=== PATIENT | female | born 1940 | race Caucasian/White ===

== ENCOUNTER 2019-12-31 17:05 | Inpatient (IN) | payer OTHER ==
[~2019-12-31] VITALS: Ht 160 cm; Wt 76.7 kg
[~2019-12-31 17:05] MED LIST: ALEVE220 MG PO; ASPIR 8181 MG PO; CLONIDINE0.1 PO; COREG6.25 MG PO; FIBER THERAPY454 GM PO; FLUVASTATIN SOD40 MG PO; LOSARTAN-HCTZ1 EAC1 PO; MIRALAX17 GM PO; MOBIC7.5 MG PO; MULTIVITAMINS1 EAC7 PO; NEXIUM40 MG PO; OSTEO BI-FLEX1 EAC1 PO; TUMS PO
[2019-12-31 17:07] VITALS: BP 178/102
--- NOTE | 2019-12-31 17:40 | NUR ---
This RN suctions patient's trach shortly after arrival in ER. Brown sputum noted.
[2019-12-31 17:48] LABS: BASOPHILS 0.8 % (0.0-2.0); EOSINOPHILS 0.1 % (0.0-3.0); LYMPHOCYTES 8.9 % (24.0-44.0); MCH 19.9 pg (26.0-34.0); MCHC 30.4 g/dL (28.0-37.0); MCV 65.5 fL (80.0-100.0); MONOCYTES 6.9 % (1.0-8.0); PLATELET COUNT 424 thou/uL (150-400); POLYS 83.3 % (36.0-66.0); RBC 5.03 mil/uL (4.20-5.00); RDW 21.4 % (10.5-14.5); WBC 9.6 thou/uL (4.0-11.0)
[2019-12-31 17:56] LABS: CALCIUM 8.6 mg/dL (8.5-10.1); CREATININE 1.2 mg/dL (0.6-1.0); POTASSIUM 3.4 mmol/L (3.5-5.1)
[2019-12-31 18:07] LABS: ALBUMIN 2.7 g/dL (3.4-5.0); TOTAL BILIRUBIN 0.2 mg/dL (<0.1-1.0); TOTAL PROTEIN 7.2 g/dL (6.4-8.2)
[2019-12-31 18:11] LABS: TROPONIN-I 1.53 ng/mL (<0.06)
[2019-12-31 18:32] LABS: ANISOCYTOSIS 1+; HYPOCHROMASIA 2+; MICROCYTES 1+
[2019-12-31] MEDS ORDERED: VITAMIN D350 MC3 PO (20:21)
[2019-12-31] MEDS ORDERED: HYDROCHLOROTH12.5 M2 PO (20:21)
[2019-12-31] MEDS ORDERED: SERTRALINE HCL25 M1 PO (20:25)
[2019-12-31] MEDS ORDERED: LISINOPRIL20 MG PO (20:26)
[2019-12-31] MEDS ORDERED: CLONIDINE HCL0.1 MG PO (20:26)
[2019-12-31] MEDS ORDERED: FERROUS SU220 MG/52 PO (20:27)
[2019-12-31] MEDS ORDERED: TRAZODONE HCL50 MG PO (20:27)
[2019-12-31] MEDS ORDERED: TAMSULOSIN HCL0.4 MG PO (20:27)
[2019-12-31] MEDS ORDERED: SILTUSSIN100 MG/5 M PO (20:28)
[2019-12-31] MEDS ORDERED: LANSOPRAZOLE30 MG PO (21:06)
[2019-12-31 22:06] VITALS: BP 164/95
[2019-12-31 22:08] VITALS: BP 157/99
[2019-12-31 22:30] VITALS: BP 174/91
[2019-12-31 23:00] VITALS: BP 165/88
[2019-12-31 23:30] VITALS: BP 177/96
[2020-01-01] VITALS (36 sets, daily range): BP systolic 128–184; BP diastolic 68–132
--- NOTE | 2020-01-01 01:12 | NUR ---
ADMIT NOTE: Per report, pt was admitted from home, family providing cares s/p anoxic brain aneurysm with trach placement. She does not use oxygen at home, but does have humidification provided. Family noted increased coughing and expectoration of thick brown/blood-tinged sputum. Upon arrival to ICU, pt was awake, unable to respond to questions, she does not emote discomfort, but is a bit resistive to cares, ie, adjusting BP cuff, placing tubing for vent, etc. Culture was collected, her lungs are coarse and diminished to bases, sats are in the upper 90's. The vent was initiated, to a cuffless trach, causing a leak alarm to ring on the vent, frequently. Review of her labs show elevated BNP of 25,100 and Troponin at 1.53 and 1.62. Per family, she is able to take meds crushed and placed in applesauce, but is NPO at this time. Miller catheter is present at admission, draining cloudy, foul-smelling urine. Old G-tube site has a bandaid present, no signs of infection are present. The bed is in the low/locked position, the siderails are up x 4 and the bed alarm is set. Will continue to monitor and follow POC.
[2020-01-01 07:50] LABS: HEMATOCRIT 33.4 % (37.0-47.0); HEMOGLOBIN 10.1 gm/dL (12.0-15.0); MCHC 30.1 g/dL (28.0-37.0); MCV 66.4 fL (80.0-100.0); RBC 5.04 mil/uL (4.20-5.00); RDW 21.7 % (10.5-14.5); WBC 8.1 thou/uL (4.0-11.0)
[2020-01-01 07:55] LABS: CALCIUM 8.5 mg/dL (8.5-10.1); CREATININE 0.9 mg/dL (0.6-1.0); MAGNESIUM 1.9 mg/dL (1.8-2.4); POTASSIUM 3.1 mmol/L (3.5-5.1)
--- NOTE | 2020-01-01 08:16 | EKG ---
[facility] [place] [address] ELECTROCARDIOGRAM REPORT Name: ZA RIVERO Room #: 238-P ADM IN M.R.#: [id number] Admission: 12/31/19 Attend Phys: Doyle Roe MD Discharge: Date of : 38 Report #: [id number] THIS REPORT FOR: cc: Venita Sierra MD, Martha M. MD Lundgren,Georges Gray MD [facility] ~ THIS REPORT FOR: //name// [facility] ED Test Date: 2019-12-31 Test Time: 17:20:45 Pat Name: ZA RIVERO Department: Room: 238 Gender: F Artificial Leather Calender Operator: carlyn : 1940 Requested By: Razia Lozano Order Number: [id number] MD: Georges Sibley Measurements Intervals [place] Rate: 90 P: 33 IN: 151 QRS: -29 QRSD: 88 T: 141 QT: 395 QTc: 484 Interpretive Statements Sinus rhythm Atrial premature complexes in couplets Left ventricular hypertrophy Nonspecific T abnrm, anterolateral leads Compared to ECG 12/03/2014 10:01:00 Atrial premature complex(es) now present ST and T wave abnormality is more prominent Electronically Signed On 01-01-2020 8:15:05 CDT by Georges Sibley [email or web address] <ELECTRONICALLY SIGNED> By: Georges Sibley MD, [facility] 01/01/20 0815 19 19 Georges Sibley MD, [facility] /EPI
--- NOTE | 2020-01-01 08:22 | EKG ---
[facility] [place] [address] ELECTROCARDIOGRAM REPORT Name: ZA RIVERO Room #: 238-P ADM IN M.R.#: [id number] Admission: 12/31/19 Attend Phys: Doyle Roe MD Discharge: Date of : 39 Report #: [id number] THIS REPORT FOR: cc: Venita Sierra MD, Martha M. MD Lundgren,Georges Gray MD [facility] ~ THIS REPORT FOR: //name// [facility] Test Date: 2020-01-01 Test Time: 08:04:24 Pat Name: ZA RIVERO Department: Room: 238 Gender: F Catering Assistant: KEREN : 1940 Requested By: Eli Sevilla Order Number: [id number] MD: Georges Sibley Measurements Intervals [place] Rate: 71 P: 20 WA: 161 QRS: -24 QRSD: 89 T: 164 QT: 459 QTc: 499 Interpretive Statements Sinus rhythm Probable left atrial enlargement LVH with secondary repolarization abnormality Borderline prolonged QT interval Compared to ECG 12/03/2014 10:01:00 Atrial premature complexes are no longer present Electronically Signed On 01-01-2020 8:20:51 CDT by Georges Sibley [email or web address] <ELECTRONICALLY SIGNED> By: Georges Sibley MD, [facility] 01/01/20819 3 3 Georges Sibley MD, [facility] /EPI
--- NOTE | 2020-01-01 08:57 | NUR ---
chart review. cm unable to visit with dhaval, pending covid 19. cm spoke with pt spouse jovan who stated ok to speak with daughter edna. intro to cm, support and dcp. " 1st after hospital in september, then [facility] when got trach and peg then [facility]. she total care at home. has trach, peg was removed on 12/18/2019. have 2 steps into house, has wheel chair, hospital bed, suction machine, and ramirez lift. she eats by mouth and takes medication crushed in applesauce. i forgot to let the nurse know last night that she take cholesterol daily powder in oj 1 x a day. called cholestyramine powder. she has new dr for [facility] roca but only been able to do video meeting since cant come to the home yet. thank you for checking on us and calling"/daughter edna. cm spoke with bedside nurse and passed on information about cholestyramine medication. will cont following as needed for dc needs.
--- NOTE | 2020-01-01 10:28 | NUR ---
perrla, brisk, spontaneous movement of italo upper extremities, not following commands, unresponsive, blood sugar-86.
[2020-01-01 14:53] LABS: BE(vivo) 2.7 mmol/L (-2 to +3); HCO3 27.2 mmol/L (22.0-26.0); PCO2 41.5 mmHg (35.0-45.0); PO2 170.3 mmHg (80.0-100.0); pH 7.434 (7.360-7.450); sO2 99.2 % (92.0-98.0)
--- NOTE | 2020-01-01 17:00 | NUR ---
PT AWAKE, MOVING ALL EXTREMITIES SPONTANEOUSLY, NODDED NO TO COMMAND. TOLERATING VENT WITH CPAP SETTINGS, NPO, PALMA WITH MARGINAL URINE OUTPUT.
[2020-01-01 21:24] LABS: URINE BILIRUBIN NEGATIVE (Negative); URINE BLOOD TRACE (Negative); URINE CLARITY SL CLOUDY; URINE COLOR YELLOW; URINE GLUCOSE-RANDOM* NEGATIVE (Negative); URINE KETONES NEGATIVE (Negative); URINE LEUKOCYTES-REFLEX TRACE (Negative); URINE NITRITE-REFLEX NEGATIVE (Negative); URINE PROTEIN (DIPSTICK) 2+ (Negative); URINE SPECIFIC GRAVITY 1.025 (1.005-1.035); URINE UROBILINOGEN 0.2 E.U./dl (0.2-1.0)
[2020-01-01 21:39] LABS: BACTERIA-REFLEX 1-9 Few /HPF (None Seen); CASTS None Seen /LPF (None Seen); CRYSTALS None Seen /LPF (None Seen); SQUAMOUS 0-3 Few /LPF (0-3); URINE RBC 3-10 Few /HPF (0-2); URINE WBC-REFLEX 0-5 Rare /HPF (0-5)
[2020-01-02] VITALS (28 sets, daily range): BP systolic 133–171; BP diastolic 57–95
--- NOTE | 2020-01-02 06:11 | NUR ---
PT RESTED WHOLE NIGHT. NO CONCERNS OVERNIGHT. ST, TO SR ON THE MONITOR. 100% O2 SATS MOST OF THE TIME. ELEVATED BP, HYDRALAZINE X 1 PRN GIVEN. ORAL CARE , AND Q2 TURNS COMPLETED. PT IS NONE VERBLA, BUT RESPONDS ONES IN A WHILE, FOLLOWING DIRECTIONS. 1/2 NS 20KMEQ MAINTAINED AT 80ML/HR. ORDERS DROP DR. TALAVERA RECEIVED BY CHARGE NURSE FOR POSSIBLE TRANSFER OUT OF ICU. NO OTHER CONCERNS AT THIS TIME. WILL CONTINUE WITH POC.
[2020-01-02 07:31] LABS: HEMATOCRIT 35.2 % (37.0-47.0); HEMOGLOBIN 10.3 gm/dL (12.0-15.0); MCH 19.8 pg (26.0-34.0); MCHC 29.2 g/dL (28.0-37.0); MCV 67.8 fL (80.0-100.0); RBC 5.2 mil/uL (4.20-5.00); RDW 21.6 % (10.5-14.5); WBC 7.4 thou/uL (4.0-11.0)
[2020-01-02 07:46] LABS: ALBUMIN 2.9 g/dL (3.4-5.0); CALCIUM 8.7 mg/dL (8.5-10.1); CREATININE 0.9 mg/dL (0.6-1.0); MAGNESIUM 1.8 mg/dL (1.8-2.4); POTASSIUM 3.1 mmol/L (3.5-5.1); TOTAL BILIRUBIN 0.2 mg/dL (<0.1-1.0); TOTAL PROTEIN 7.8 g/dL (6.4-8.2)
[2020-01-02 07:48] LABS: TROPONIN-I 1.97 ng/mL (<0.06)
--- NOTE | 2020-01-02 13:57 | NUR ---
ASSUMED CARE OF PT AT 0700. PT NON VERBAL, NOT ABLE TO FOLLOW COMMANDS AT THIS TIME. IN NO APPARENT DISTRESS. RESTLESS AT TIMES. PLACED ON TRACH SHIELD BY RT - TOLERATING WELL - BROWN/BLOOD TINGED SECRETIONS. GUARDED TO ORAL CARE. EDEMA NOTED ABOVE PERIPHERAL IV SITE - IV TEAM NOTIFIED THAT CONFIRMED IV STILL GOOD WITH ULTRASOUND. POTASSIUM REPLACED PER PROTOCOL. HYPERTENSIVE BUT IMPROVES WITH HYDRALAZINE. ORDERS FOR CCT TRANSFER. REPORT GIVEN TO CCU NURSE.
--- NOTE | 2020-01-02 14:18 | NUR ---
1315: PT. ARRIVED FROM ICU, REPORT RECEIVED AT BEDSIDE FROM RAMÓN LOVING. PT. IS FIGIDITY AND RESTLESS, PULLS ON CORDS. IV INFUSING WITH FIRST REPLACEMET POTASSIUM INFUSING NOW TO RIGHT ANTECUBAtal IV SITE NO SIGNS OF COMPLICATIONS. PT. SHOWS NO SIGNS OF GRIMACING OR MAJOR DISCOMFORT. WILL CONTINUE TO MONITOR. CURRENTLY NSR, NO ECTOPY.
--- NOTE | 2020-01-02 14:21 | NUR ---
TRACH COLLAR IS ON TRACH AT THIS TIME AT 14 LITERS AND 35%FIO2, NO SECRETIONS AND TRACH TIES ON AND IN PLACE. CUFF PRESSURE CHECKED AND BALLON IS NORMAL INFLATION SIZE.
--- NOTE | 2020-01-02 14:40 | 2DMMODE ---
[facility] [place] [address] 2 D/M-MODE ECHOCARDIOGRAM Name: ZA RIVERO Room #: 211-P ADM IN M.R.#: [id number] Admission: 12/31/19 Attend Phys: Doyle Reo MD Discharge: Date of : 38 Report #: [id number] THIS REPORT FOR: cc: Venita Sierra MD, Martha M. MD Park, Jin S. MD ~ APPROVED REPORT Study performed: 01/02/2020 13:48:17 EXAM: Comprehensive 2D, Doppler, and color-flow Echocardiogram Patient Location: Bedside Room #: 211 Status: routine BSA: 1.72 HR: 88 bpm BP: 171/86 mmHg Rhythm: NSR Other Information Study Quality: Good Technically limited study due to no patient participation, constant movement, inability to position. Indications Short of air, cough, elevated troponin, hypertension. Hx: Mild CAD, HTN, HLP, paraplegic, permanent trach. 2D Dimensions RVDd: 41.06 mm IVSd: 14.41 (7-11mm) LVOT Diam: 19.51 (18-24mm) LVDd: 44.58 mm PWd: 13.13 (7-11mm) Ascending Ao: 38.40 (22-36mm) LVDs: 33.08 (25-40mm) Aortic Root: 32.62 mm Volumes Left Atrial Volume (Systole) Single Plane 4CH: 53.17 mL Single Plane 2CH: 89.97 mL LA ESV Index: 46.00 mL/m2 Aortic Valve AoV Peak Luis.: 1.91 m/s AO Peak Gr.: 14.62 mmHg LVOT Max P.86 mmHg [facility] [address] [place] [address] 2 D/M-MODE ECHOCARDIOGRAM Name: ZA RIVERO Room #: 211-P [facility] IN [facility].#: [id number] Admission: 12/31/19 Attend Phys: Doyle Roe MD Discharge: Date of : 38 Report #: [id number] LVOT Max V: 1.31 m/s REJI Vmax: 2.05 cm2 AI Vmax: 4.38 m/s AI Forrest: 3.71 m/s2 AI PHT: 342.69 ms Mitral Valve E/A Ratio: 1.4 MV Decel. Time: 157.87 ms MV E Max Luis.: 1.49 m/s MV A Luis.: 1.05 m/s MV PHT: 45.78 ms IVRT: 99.19 ms Pulmonary Valve PV Peak Luis.: 0.98 m/s PV Peak Gr.: 3.86 mmHg Pulmonary Vein P Vein S: 0.57 m/s P Vein A: 0.30 m/s P Vein D: 0.47 m/s P Vein A Dur.: 83.0 msec P Vein S/D Ratio: 1.21 Tricuspid Valve TR Peak Luis.: 3.38 m/s RAP Estimate: 10.00 mmHg TR Peak Gr.: 46.00 mmHg PA Pressure: 56.00 mmHg Left Ventricle The left ventricle is normal size. Regional wall motion abnormalities are noted. Mild concentric left ventricular hypertrophy. The overall left ventricular systolic function appears low-normal. LVEF is 50%. Moderate diastolic dysfunction is present (pseudonormal filling). Right Ventricle The right ventricle is normal size. The right ventricular systolic function is normal. Atria Left atrium is moderately dilated. Right atrium is mildly dilated. Aortic Valve The aortic valve is normal in structure. Mild to moderate aortic regurgitation. There is no aortic valvular stenosis. [facility] [address] [place] [address] 2 D/M-MODE ECHOCARDIOGRAM Name: ZA RIVERO Room #: 211-P [facility] IN .R.#: [id number] Admission: 12/31/19 Attend Phys: Dyole Roe MD Discharge: Date of : 39 Report #: [id number] Mitral Valve The mitral valve is normal in structure. Mild mitral annular calcification. Mild mitral regurgitation. No evidence of mitral valve stenosis. Tricuspid Valve The tricuspid valve is normal in structure. Mild to moderate tricuspid regurgitation. Estimated PAP is 55-60mmHg. Pulmonic Valve The pulmonary valve is normal in structure. Mild pulmonic regurgitation. Great Vessels The aortic root is normal in size. The ascending aorta is borderline dilated. IVC is dilated and collapses <50% with inspiration. Pericardium There is no pericardial effusion. <Conclusion> The left ventricle is normal size. Mild concentric left ventricular hypertrophy. The overall left ventricular systolic function appears low-normal. LVEF is 50%. Moderate diastolic dysfunction is present (pseudonormal filling). The right ventricle is normal size. Left atrium is moderately dilated. Mild to moderate aortic regurgitation. Mild mitral regurgitation. Mild to moderate tricuspid regurgitation. Estimated PAP is 55-60mmHg. <ELECTRONICALLY SIGNED> By: Del Frankel MD 01/02/20 1438 1438 1438 Del Frankel MD /INF
--- NOTE | 2020-01-02 18:52 | NUR ---
CASE MANAGEMENT: PLEASE CONTACT HER HOME HEALTH PILOT INSTRUCTOR IN REGARDS TO DISCHARGE AT : [phone] SHIRA SHE HAS SOME CONCERNS FOR HALFWAY CARE AND BLOOD PRESSURE REGULATION. THANK YOU
[2020-01-02 19:42] LABS: CALCIUM 8.7 mg/dL (8.5-10.1); CREATININE 0.8 mg/dL (0.6-1.0)
[2020-01-02 19:43] LABS: POTASSIUM 4.7 mmol/L (3.5-5.1)
[2020-01-03] VITALS (7 sets, daily range): BP systolic 149–182; BP diastolic 81–100
--- NOTE | 2020-01-03 06:01 | NUR ---
PATIENTS CARES WERE ASSUMED AT SHIFT CHANGE. PATIENT WAS ASSESSED AND MEDS WERE PASSED. PATIENT IS A PARAPLEGIC, NON VERBEL, AND FIX AND FOLLOW PATIENT. POC IS TO MONITOR BP CLOSE. PATIENT IS INCONTINENT. PATIENT HAS A PALMA. THIS PATIENT HAD A LARGE BM THIS SHIFT. THIS WAS FOLLOWED BY A BATH AND A LINEN CHANGE. HOURLY ROUNDING WAS DONE. THE BED IS IN A LOW AND LOCKED POSITION.
[2020-01-03 06:52] LABS: HEMATOCRIT 31.5 % (37.0-47.0); HEMOGLOBIN 9.5 gm/dL (12.0-15.0); MCHC 30.3 g/dL (28.0-37.0); MCV 66.2 fL (80.0-100.0); RBC 4.75 mil/uL (4.20-5.00); RDW 21.2 % (10.5-14.5); WBC 8.4 thou/uL (4.0-11.0)
[2020-01-03 07:02] LABS: CALCIUM 8.8 mg/dL (8.5-10.1); CREATININE 0.8 mg/dL (0.6-1.0); MAGNESIUM 1.9 mg/dL (1.8-2.4)
[2020-01-03 07:06] LABS: POTASSIUM 3.7 mmol/L (3.5-5.1)
--- NOTE | 2020-01-03 14:26 | NUR ---
Chart reviewed and discussed with the care team and the attending. Pt was on service with [facility] prior to admission and software writer spoke with her HH RN Karla. She notes pt's blood pressures have been running very high at home and dtr reports she was put on a new medication prior to dc from rehab. [facility] notes lots of education regarding trach care, meds, and wound care needed in the home. The attending has spoken with pt's dtr Rhoda today regarding her prior level of function, current concerns and plan of care. Lead Care Manager also spoke with Rhoda to confirm support, HH services and dme as well discuss possible need for SNF or hospice referral pending her progress. The pt is off the vent and out of ICU. She is requiring humidification and suction which she has at home. She has been more somulent and ST is trying to reeval her swallow. Her peg tube was removed a few weeks ago when she [facility] She has been on a modified diet with regular liquids at home with her dtr giving her crushed meds in applesauce. The pt's dtr reports that the pt was at [facility] for approx one month starting September 21, one month at [facility], and one month at [facility]. She has not used any of her SNF benefits. Pt's dtr is uncertain if she or pt's spouse are interested in SNF. They prefer the pt return home with them and HH at [place]. The pt's son has been helping in the evenings. She denies pt having an Adv Directive or living will. She indicates that they have not had any end of life decussions as a family but will touch base with family this evening should the pt's condition continue to decline. She moved in with parents to help care for the pt. She is aware that the pt may need to have a peg tube again pending her swallow eval. Neuro consult pending. Cardiology adjusting bp meds. Support provided along with introduction of cm role. DC plan at this time is to return home with [facility]. Pt will need [facility] non emergent transport at [place]. Will follow.
--- NOTE | 2020-01-03 14:55 | NUR ---
PT ON SERVICE WITH [facility] PRIOR TO ADM FAXED CLINICAL UPDATE AND SPOKE WITH KIN IN INTAKE SHE RECEIVED UPDATE AND LET HER KNOW OF POSS DC TOMORROW. DP TO FOLLOW.
--- NOTE | 2020-01-03 20:25 | NUR ---
ASSUMED CARE OF PATIENT AT 0700. ASSESSMENTS COMPLETED. PATIENT ALERT TO SELF AND APHASIC. PATIENT SUCTIONED INTERNALLY ONCE WITH A THICK/DAVIS SPUTUM. IV PLACED BY IV TEAM IN RIGHT UE, WITH FLUIDS RUNNING. BLOOD PRESSURE AT 1100 OF 182/89, HYDRALAZINE GIVEN WITH DECREASED BP RESULT. NEURO AND GI CONSULT PLACED. GI DOCTOR REQUESTED A CALORIE COUNT BE INITIATED. ST DID EVAL AND DETERMINED THAT A NECTAR THICK LIQUIDS WOULD BE MOST APPROPRIATE. ST WILL RETURN TOMORROW WITH SPEAK VALVE TO MOST SAFELY ALLOW PATIENT TO EAT AND DRINK AND WILL INITIATE DIET ORDER TOMORROW. PATIENT TO CONTINUE WITH POC.
[2020-01-04] VITALS (10 sets, daily range): BP systolic 98–9166; BP diastolic 56–92
[2020-01-04 08:34] LABS: CALCIUM 8.6 mg/dL (8.5-10.1); CREATININE 0.7 mg/dL (0.6-1.0); MAGNESIUM 1.5 mg/dL (1.8-2.4); POTASSIUM 3.4 mmol/L (3.5-5.1)
--- NOTE | 2020-01-04 08:50 | NUR ---
pt alert to self, tracking, trach with humidified air and frquent suctioning of thick allen sputum, oral care given carefully as patient bites everything that goes in mouth, turning q 2 hrs and prn, lrg liquid bm this am sent to lab for ob, no signs of pain, vss except elevated bp prn hydralizine given, jack with yellow urine drainage, old peg site with mepilex intact, npo waiting for st to bring a speaking valve for pt and eval for diet, lab unable to draw and stated next person would be here after 0600, report given to next shift to con't ppoc.
--- NOTE | 2020-01-04 09:36 | NUR ---
REC CARE OF PT AT SHIFT CHANGE. TRACH SHIELD OVER TO FAR RIGHT OF TRACH OPENING. REPORTS OF NPO STILL. SPEECH SAID TOO MANY SECRETIONS FOR TRACH/VOICE COVER BUT WHEN SHE DOES INGEST SHE SHOULD BE ON THICKENED LIQ SHE ASPIRATED W/THIN LIQUIDS. PT OPENS EYES AND WATCHES, HAS NODDED NO TWICE TO QUESTIONS. ALL CARES EXPLAINED WHILE DOING. LAB COULDNT GET BLOOD THIS AM. I CAME IN AND HELD PT'S HAND AND LABS WERE SUCCESSFULLY DRAWN, TURN Q2. AIR PUMP WILL BE DELIVERED PT HAS SUPERFICIAL WOUNDS TO BE TREATED WITH CREAM PER INDER MEJIAS. SEE SEPARATE INTERVENTIONS FOR ASSESSMENTS. RT CLEANED TRACH AND CHANGED OUT INTERNAL PIECE. PT TOLERATED WELL. WILL CONTINUE TO MONITOR
--- NOTE | 2020-01-04 10:00 | NUR ---
WOUND CONSULT; WOUND WERE IDENTIFIED PRIMARILY TO THE PERIRECTAL AREAS. NO S/S OF INFECTION. INCONTINET DERMATITIS VS PRESSURE. RECOMMENDATIONS; ZGUARD DAILY/PRN AND A LOW AIRLOSS PUMP RN PRESENT
--- NOTE | 2020-01-04 15:46 | NUR ---
[facility] has called back and decided to decline the case for readmission. Pt is getting Peg tube re inserted today. Retail Team Leader had f/u conversation with pt's dtr via phone. No weekend dc anticipated. Possible dc home with hh early next week. Dtr familiar with tube feedings but will need additional instruction. SNF benefit discussed and possible referral to [facility]. Dtr and pt's spouse to discuss but they are leaning toward bringing her back home with hh. They are not sure about SNF or ltc placement. They feel they want to try to care for her at home. Referral for HH faxed and called to [facility]. They can accept as a new HH provider. Dtr updated. Dc raw material planner has faxed referral to [facility] for new enteral referral and the pt will need formula and supplies at home. Will await the shoe patternmaker recommendations and see how the pt tolerates her feedings. CM to f/u with the pt's dtr on Tuesday to reveiw the dc plan.
--- NOTE | 2020-01-04 15:48 | NUR ---
ELECTROLYTE REPLACEMENT STARTED PRIOR TO PT LEAVING FOR SURGERY; WILL CONTINUE WITH IVF AND ENTER A LAB ORDER FOR MAG WHEN APPROPRIATE. AWAITING REPORT/PT WHEN READY
--- NOTE | 2020-01-04 17:32 | NUR ---
REC PT BACK FROM RECOVERY, RESPIRATIONS WNL, SEE VS. COVERED NEW IV WELL ABD AND GAVE HER PAIN MEDICINE FOR PAIN AEB HER MAKING GRIMACES AND ARCHING SLIGHTLY. WILL CONTINUE TO MONITOR
[2020-01-05 04:51] VITALS: BP 138/86
[2020-01-05 07:00] VITALS: BP 137/77
--- NOTE | 2020-01-05 07:02 | NUR ---
ASSUME CARE 1900. UNABLE TO VOICE OAIN BUT NO MOANING AT REST OR WITH MOVEMENT NOTED. POOR ACTIVITY TOLERANCE. PT MOVES ARMS BUT DOES NOT MOVE LOWER EXTREMITIES. A/O TO PERSON ONLY. UNABLE TO ASSESS ORIENTATION. ASSESSMENT CHARTED. PROGRESSING MODERATELY WITH POC. PLAN IS TO CONTINUE WITH ABX/STABILIZE ELECTROLYTES AND MONITRO LEVEL OF CONCIOUSNESS.SR ON MONITOR. NO DISTRESS NOTED. SUCTIONING NEEDED AND MODERATE TOLERANCE. SATS ADEQUATELY ON 8L. WILL CONTINUE TO MONITOR AND FOLLOW WITH POC
[2020-01-05 10:57] LABS: HEMATOCRIT 34.2 % (37.0-47.0); HEMOGLOBIN 10.5 gm/dL (12.0-15.0)
[2020-01-05 11:11] LABS: % SATURATION 8 % (20-39); IRON 19 ug/dL (50-170); TIBC 242 ug/dL (250-450)
[2020-01-05 11:39] LABS: FOLIC ACID 17.5 ng/mL (8.6-58.9)
[2020-01-05 17:20] VITALS: BP 132/76
[2020-01-05 19:15] VITALS: BP 145/85
--- NOTE | 2020-01-06 03:19 | NUR ---
ASSUMED CARE OF PT AT 1900HRS. PT IS ALERT BUT IS NON VERBAL. ORIENTATION CANNOT BE ASSESSED AND NEEDS MUST BE ANTICIPATED. FALL PRECAUTION IN PLACE. TRACH MASK IN PLACE AND TRACH WAS SUCTIONED NEEDED. PT WAS TURNED Q2H. PT TRIES TO PUT THINGS IN MOUTH. FREQUENT CHECKS NEEDED. ORAL CARE PROVIDED. PT APPEARS COMFORTABLE AND WAS ABLE TO SLEEP PART OF THE SHIFT. PEG TUBE SITE APPEARS C/D/I. CONTINUOUS PULSE OX IN PLACE. VSS AND NO S/S OF ACUTE DISTRESS. WILL CONTINUE TO MONITOR.
[2020-01-06 04:07] LABS: ABSOLUTE NEUTROPHILS 3.4 thou/uL (1.4-8.2); BASOPHILS 1.1 % (0.0-2.0); EOSINOPHILS 8.5 % (0.0-3.0); HEMATOCRIT 30.4 % (37.0-47.0); HEMOGLOBIN 9.3 gm/dL (12.0-15.0); LYMPHOCYTES 21.2 % (24.0-44.0); MCH 19.8 pg (26.0-34.0); MCHC 30.5 g/dL (28.0-37.0); MCV 64.8 fL (80.0-100.0); MONOCYTES 7.6 % (1.0-8.0); POLYS 61.6 % (36.0-66.0); RBC 4.69 mil/uL (4.20-5.00); RDW 20.9 % (10.5-14.5); WBC 5.5 thou/uL (4.0-11.0)
[2020-01-06 04:10] VITALS: BP 145/94
[2020-01-06 04:10] LABS: PLATELET COUNT 291 thou/uL (150-400)
[2020-01-06 04:14] LABS: CREATININE 0.7 mg/dL (0.6-1.0); MAGNESIUM 1.8 mg/dL (1.8-2.4); POTASSIUM 3.4 mmol/L (3.5-5.1)
[2020-01-06 07:15] VITALS: BP 152/88
[2020-01-06 11:30] VITALS: BP 146/87
[2020-01-06 16:00] VITALS: BP 158/101
[2020-01-06 18:04] VITALS: BP 148/79
--- NOTE | 2020-01-06 18:25 | NUR ---
PT A&O TO SELF, NON VERBAL, NO APPARENT PAIN. PATIENT HAS TRACH, SUCTIONED NEEDED, SPUTUM THICK AND CLEAR, HOB RAISED. PATIENT HAS CONT. PULSE OX, TRACH TENT AT 14L O2 AT 35%. IV LEFT FA PATENT WITH FLUIDS RUNNING. LBM TODAY. MEDS GIVEN THROUGH PEG AND FLUSHED. NO SIGNS OF DISTRESS. WILL CONTINUE TO MONITOR.
[2020-01-06 19:19] VITALS: BP 115/62
[2020-01-07 04:39] VITALS: BP 153/91
--- NOTE | 2020-01-07 07:34 | NUR ---
PATIENTS CARES WERE ASSUMED AT SHIFT CHANGE. PATIENT WAS ASSESSED AND MEDS WERE PASSED. PEG TUBE WAS FLUSHED WITH 60CC H2O AND NO RESIDULE. DRESSING OVER THE TUBE. PATIENT HAS NOT NUTRITION ORDERED. SHE CONTINUES TO BE NPO. HOURLY ROUNDS WERE MADE. THE BED IS IN A LOW AND LOCKED POSITION
[2020-01-07 08:00] VITALS: BP 154/86
--- NOTE | 2020-01-07 10:23 | NUR ---
WOUND CARE F/U; WE ATTEMPTED TO SEE THE PATIENT TODAY WHEN THE RN INFORMED US THAT SHE HAD JUST APPLIED ZGUARD TO THE WOUNDS AND THERE ARE NO NEW CONCERNS AT THIS TIME. RECOMMENDATIONS; CONTIUE CURRENT WOUND CARE, WE WILL F/U TOMORROW. DISCUSSED WITH RN
--- NOTE | 2020-01-07 10:56 | NUR ---
Recommend start jevity 1.5 at 30ml/h and progress to goal as tolerated of 55ml/hr. Once at goal, dc IVF and start water flushes 225 ml every 6hr
[2020-01-07 12:00] VITALS: BP 156/95
--- NOTE | 2020-01-07 15:41 | NUR ---
Patient rec peg tube and feedings started today. patient was NOT on oxygen at home only humidified air. SP with dtr who reports cont plan for home and not skilled care. They provide 24 care at home. Faxed updated exterminator helper termite note to [facility]. Patient appears to be on 15 liters of oxygen
[2020-01-07 16:00] VITALS: BP 146/80
--- NOTE | 2020-01-07 16:08 | NUR ---
ASSESSMENT CHARTED. PT ORIENTED TO SELF. VSS. TURNED AND REPOSITIONED Q 2 HOURS AND NEEDED. TUBE FEEDING STARTED @ 30 ML/HR. IV FLUIDS D/C. RESPIRATORY TREATEMENT PROVIDED BY RT. NO RESPIRATORY DISTRESS NOTED. WILL CONTINUE TO MONITOR.
[2020-01-07 20:15] VITALS: BP 144/78
--- NOTE | 2020-01-08 02:56 | NUR ---
ASSESSMENT DOCUMENTED.PT RESTING IN NO ACUTE DISTRESS.ALERT AND AWAKE.VSS.SR ON MONITOR.TUBE FEEDINGS [facility]ED TO 40CC/HR,30CC OF RESIDUAL OBTAINED.LOUIE BURCH.Q2H TURNS.POC IS TO CONT WITH CURRENT TX W/PLAN TO DISCHARGE TO HOME WITH HH.
[2020-01-08 04:45] VITALS: BP 135/81
[2020-01-08 05:33] LABS: HEMATOCRIT 31.7 % (37.0-47.0); HEMOGLOBIN 9.5 gm/dL (12.0-15.0); MCH 19.5 pg (26.0-34.0); MCHC 29.9 g/dL (28.0-37.0); MCV 65.2 fL (80.0-100.0); PLATELET COUNT 286 thou/uL (150-400); RBC 4.86 mil/uL (4.20-5.00); RDW 20.8 % (10.5-14.5); WBC 5.5 thou/uL (4.0-11.0)
[2020-01-08 05:42] LABS: ALBUMIN 2.4 g/dL (3.4-5.0); CALCIUM 8.2 mg/dL (8.5-10.1); CREATININE 0.7 mg/dL (0.6-1.0); MAGNESIUM 1.6 mg/dL (1.8-2.4); PHOSPHORUS 3.6 mg/dL (2.5-4.9); POTASSIUM 3.8 mmol/L (3.5-5.1); TOTAL BILIRUBIN 0.2 mg/dL (<0.1-1.0); TOTAL PROTEIN 6.7 g/dL (6.4-8.2)
[2020-01-08 07:03] LABS: ABSOLUTE NEUTROPHILS 3.7 thou/uL (1.4-8.2); ANISOCYTOSIS 2+; HYPOCHROMASIA 2+; MICROCYTES 2+; PLATELET ESTIMATE NORMAL
[2020-01-08 07:04] LABS: OVALOCYTES OCCASIONAL; POIKILOCYTOSIS 1+; TARGET CELLS FEW
[2020-01-08 08:00] VITALS: BP 147/83
--- NOTE | 2020-01-08 09:46 | NUR ---
WOUND CARE F/U ASSESSED BUTTOCK WOUNDS W/ GOAT FARMER BYRON, HEALING, NO S/S INFECTION, L BUTTOCK STILL OPEN, PINK VIABLE TISSUE PRESENT, REMAINS ON LOW AIR LOSS PUMP TO BED, PHOTO TAKEN RECOMMENDATIONS; CONT ZGUARD TO BUTTOCKS SACRAL AREA BID AND PRN, TURN Q 2HOURS, OFF LOADING, CONT LOW AIR LOSS PUMP TO BED GOAT FARMER AWARE
--- NOTE | 2020-01-08 12:15 | NUR ---
FAXED UPDATE FOR TUBE FEEDING RECEIVED CONFIRMATION AND LEFT MSG WITH INTAKE. DP TO FOLLOW.
[2020-01-08 12:40] VITALS: BP 135/76
[2020-01-08 12:45] VITALS: BP 147/83
--- NOTE | 2020-01-08 15:33 | NUR ---
tenative plan for home in am. Notified Raymondlavinia, spouse, [facility]. Sp with RN, in computer 15 liters oxygen is actually just the humidified air for the trach. Patient is on room air. The 15 listers is only to accomadate the humidity for trach. Patient is at goal rate for TF. Per RN tolerating well. Patient will need [facility] for home.
--- NOTE | 2020-01-08 15:49 | NUR ---
ASSESSMENT CHARTED. VSS. PT ORIENTED TO SELF. TUBE FEEDING INFUSING @ 55ML/HR. WOUND CARE PROVIDED. TURNED AND REPOSITIONED Q 2 HRS AND NEEDED. NO RESPIRATORY DISTRESS NOTED. PROGRESSING SLOWLY TOWARDS DISCHARGE GOAL. WILL CONTINUE TO MONITOR.
[2020-01-08 17:00] VITALS: BP 143/73
[2020-01-08 20:06] VITALS: BP 144/84
[2020-01-09 04:10] VITALS: BP 146/79
--- NOTE | 2020-01-09 06:04 | NUR ---
PATIENTS CARES WERE ASSUMED AT SHIFT CHANGE. PATIENT WAS ASSESSED AND MEDS WERE PASSED. NO RESIDUAL WAS FOUND ON CHECKS. TURNED 2Q AND PATIENT CONTINUES TO BE NON VERBAL.HOURLY ROUNDS WERE DONE AND THE BED IS IN A LOW AND LOCKED POSITION
[2020-01-09 08:24] VITALS: BP 157/102
[2020-01-09] MEDS ORDERED: CATAPRES-TTS 20.2 MG TRANSDERM (11:17)
[2020-01-09] MEDS ORDERED: IPRAT-ALBUT 0.5-3 ML INH (11:20)
[2020-01-09] MEDS ORDERED: CEFDINIR300 MG PO (11:20)
[2020-01-09 12:32] VITALS: BP 149/98
--- NOTE | 2020-01-09 13:17 | NUR ---
PT DISCHARGING TODAY TO HOME WITH [facility] FAXED DC ORDERS/SUMMARY TO [facility] SPOKE WITH ESTEBAN IN INTAKE SHE RECEIVED ORDERS AND WILL NOTIFY PT TIME OF VISITS. PT NEEDING TRANSPORTATION TO HOME ARRANGED TRANSPORT BY AMBULANCE ([facility]) BECAUSE OF HIGH FLOW HUMIDIFIED 02 TRACH SHIELD FOR 1400 TODAY. FAMILY NOTIFIED BY VALARIE AVILES) OF TIME OF TRANSPORT UNIT NOTIFIED.
--- NOTE | 2020-01-09 13:20 | NUR ---
Patient to dc today with HH care. SP with dtr she reports she did sp with [facility] and rec education regarding tube feeding. [facility] at dc. Dc planner/scheduler arranged transport at 1400 family aware no further needs.
--- NOTE | 2020-01-09 14:27 | NUR ---
ASSESSMENT CHARTED. PT ORIENTED TO SELF. TOLERATED TUBE FEEDING @ 55 ML/HR. WOUND CARE PROVIDED. ORDERS GIVEN TO DISCHARGE PT TO HOME WITH HOME HEALTH. DISCHARGE INSTRUCTIONS GIVEN TO THE DAUGHTER OVER THE PHONE. DAUGHTER VERBERLISED UNDERSTANDING. PT LEFT THE FACILITY IN STABLE CONDITION.
== END 2020-01-09 14:32 | disposition home health service (06) | DRG 208 ==
LOC: ER 17:05 → ICU 18:46 → EROBS 18:46 → ICU 21:25 → 2N 01-02 13:15
PROVIDERS: Internal Medicine; Nurse Practitioner Family; ADMIT Hospitalist
PROC: 5A1945Z Respiratory Ventilation, 24-96 Consecutive Hours (ICD-10-PCS; principal; 2019-12-31)
PROC: 5A09357 Assistance with Respiratory Ventilation, Less than 24 Consecutive Hours, Continuous Positive Airway Pressure (ICD-10-PCS; 2020-01-01)
PROC: 0DH68UZ Insertion of Feeding Device into Stomach, Via Natural or Artificial Opening Endoscopic (ICD-10-PCS; 2020-01-04)
DX: J96.21 Acute and chronic respiratory failure with hypoxia (principal); I21.4 Non-ST elevation (NSTEMI) myocardial infarction; E43 Unspecified severe protein-calorie malnutrition; G92 Toxic encephalopathy; J18.9 Pneumonia, unspecified organism; G82.20 Paraplegia, unspecified; N17.9 Acute kidney failure, unspecified; E87.0 Hyperosmolality and hypernatremia; K59.2 Neurogenic bowel, not elsewhere classified; G93.1 Anoxic brain damage, not elsewhere classified; N31.2 Flaccid neuropathic bladder, not elsewhere classified; M81.0 Age-related osteoporosis without current pathological fracture; K21.9 Gastro-esophageal reflux disease without esophagitis; E78.5 Hyperlipidemia, unspecified; M19.90 Unspecified osteoarthritis, unspecified site; F32.9 Major depressive disorder, single episode, unspecified; I10 Essential (primary) hypertension; I67.1 Cerebral aneurysm, nonruptured; N31.9 Neuromuscular dysfunction of bladder, unspecified; E87.6 Hypokalemia; I25.10 Atherosclerotic heart disease of native coronary artery without angina pectoris; D64.9 Anemia, unspecified; R13.10 Dysphagia, unspecified; Z20.828 Contact with and (suspected) exposure to other viral communicable diseases; D50.9 Iron deficiency anemia, unspecified; K29.80 Duodenitis without bleeding; J22 Unspecified acute lower respiratory infection; Z90.710 Acquired absence of both cervix and uterus; Z79.82 Long term (current) use of aspirin; Z79.899 Other long term (current) drug therapy
CPT/HCPCS: 10078; 10081; 10203; 62110; 62900; 70005

== ENCOUNTER → 2020-02-21 | Outpatient (CLI) | payer OTHER ==
[~2020-02-21] MED LIST changes: +CATAPRES-TTS 20.2 MG TRANSDERM; +CEFDINIR300 MG PO; +CLONIDINE HCL0.1 MG PO; +FERROUS SU220 MG/52 PO; +HYDROCHLOROTH12.5 M2 PO; +IPRAT-ALBUT 0.5-3 ML INH; +LANSOPRAZOLE30 MG PO; +LISINOPRIL20 MG PO; +SERTRALINE HCL25 M1 PO; +SILTUSSIN100 MG/5 M PO; +TAMSULOSIN HCL0.4 MG PO; +TRAZODONE HCL50 MG PO; +VITAMIN D350 MC3 PO
== END ==
LOC: SPEECH 09:01 → RAD 09:01 → EDSTATUS 09:58 → RAD 10:00 → SPEECH 11:32
PROVIDERS: ATTEND Family Medicine
DX: R13.10 Dysphagia, unspecified (principal); Z87.09 Personal history of other diseases of the respiratory system; Z93.0 Tracheostomy status